=== PATIENT | female | born 1960 | race Caucasian/White ===

== ENCOUNTER 2017-08-28 10:36 | Emergency (ER) | payer BC, OTHER ==
[~2017-08-28] VITALS: Ht 157.5 cm; Wt 54.0 kg
[~2017-08-28 10:36] MED LIST: FLUO20CA35 PO
[2017-08-28 10:37] VITALS: TEMP 36.8; Ht 157.5 cm; Wt 54.0 kg
--- NOTE | 2017-08-28 13:04 | DIAGNOSTIC IMAGING REPORT ---
L HAND MIN 3 VIEWS ROUTINE CLINICAL HISTORY: dog bite left hand/attention third and fourth digits trauma. Pain. COMPARISON: None. DISCUSSION: Moderate generalized degenerative change. Tiny avulsion base middle phalanx fourth finger. Associated soft tissue edema. No evidence of dislocation. Moderate soft tissue edema the third and fourth fingers. No evidence of dislocation. No radiopaque foreign bodies. IMPRESSION: 1. Small avulsion base middle phalanx left fourth finger. 2. Soft tissue edema about the third and fourth fingers. 3. Moderate generalized degenerative change. The above report was generated using voice recognition software. It may contain grammatical, syntax or spelling errors. Electronically signed by: Matti Myers M.D. 08/28/2017 1:02 PM Dictated Date/Time: 08/28/2017 1:00 PM
--- NOTE | 2017-08-28 13:15 | EMERGENCY ROOM VISIT NOTE ---
ED Visit Note First contact with patient: 11:10 CHIEF COMPLAINT: Left hand injury secondary to dog bite. HISTORY OF PRESENT ILLNESS: This 57-year-old female presents the ER with chief complaint that her dog bit her left hand last night at 9:30 PM. The patient states that the bite was accidental. She was playing with him and he accidentally bit her left hand. The dog's immunizations are all up-to-date. The patient's tetanus was in 2015. The patient states that there is a small open wound on the left third finger which she washed out with peroxide and then placed antibiotic ointment. She is concerned because both her third and fourth fingers are very swollen and ecchymotic. She also has a wearing on her ring finger which she cannot removed. REVIEW OF SYSTEMS: 3 system review was performed and was negative unless stated otherwise in history of present illness. PMH: The patient is healthy; cleft palate repair SOCIAL HISTORY: Patient lives with her boyfriend. The patient admits to alcohol use but denies any tobacco use. PHYSICAL EXAM: Vital Signs: Were reviewed Reviewed Nurse's notes. GENERAL: 57- year-old white female appears in no acute distress. MENTAL Status: Alert and oriented 3. LEFT HAND: The patient has ecchymosis and edema noted to the third and fourth digits. There is a superficial wound noted on the distal aspect of the third finger. Remainder of hand is unremarkable. The patient has a ring on her fourth finger. It is not tight at the base of the finger but she is unable to remove it. EMERGENCY DEPARTMENT COURSE: The patient was evaluated. Animal bite form was completed. The patient's ring was cut off her left fourth finger. X-ray of the left hand was ordered interpreted by the radiologist and myself. DIAGNOSTICS:L HAND MIN 3 VIEWS ROUTINE CLINICAL HISTORY: dog bite left hand/attention third and fourth digits trauma. Pain. COMPARISON: None. DISCUSSION: Moderate generalized degenerative change. Tiny avulsion base middle phalanx fourth finger. Associated soft tissue edema. No evidence of dislocation. Moderate soft tissue edema the third and fourth fingers. No evidence of dislocation. No radiopaque foreign bodies. IMPRESSION: 1. Small avulsion base middle phalanx left fourth finger. 2. Soft tissue edema about the third and fourth fingers. 3. Moderate generalized degenerative change. The above report was generated using voice recognition software. It may contain grammatical, syntax or spelling errors. Electronically signed by: Matti Myers M.D. 08/28/2017 1:02 PM The patient was informed of the findings. The patient was offered fingers when he was she declined. I also informed her that I will be putting her on antibiotics. She states that antibiotics upset her stomach. I stated that her bites are very dirty and that she needs to take the antibiotics. The patient verbalized understanding. The patient was discharged home in stable condition. DIAGNOSIS: Avulsion fracture left fourth finger Contusion left hand Dog bite left hand DISCHARGE INSTRUCTIONS & TREATMENT: Ibuprofen 600 mg every 6 hours with food for pain and swelling. Keep hand elevated whenever possible. Ice intermittently over the next 24-48 hours. Take clindamycin as prescribed. If symptoms are not improving in 5-7 days, follow-up with your family doctor for reevaluation. Current/Historical Medications Scheduled Fluoxetine (Prozac), 20 MG PO Q2D Allergies Coded Allergies: Penicillins (Verified Allergy, Unknown, N/V, 08/28/17) Vital Signs Date Time Temp Pulse Resp B/P (MAP) Pulse Ox O2 Delivery O2 Flow Rate FiO2 08/28/17 12:33 67 18 112/82 99 Room Air 08/28/17 10:37 36.8 63 16 128/68 100 Departure Information Referrals Ashish Galvan DO (PCP) Patient Instructions [facility]
[2017-08-28] MEDS ORDERED: CLIN300C2 PO (13:17)
[2017-08-28 13:35] VITALS: BP 114/79; PULSE 65; O2SAT 98
== END 2017-08-28 13:34 | disposition home or self-care (01) ==
LOC: C.EDB 10:38 → C.EDD 13:34
DX: S62.625A Displaced fracture of middle phalanx of left ring finger, initial encounter for closed fracture (principal); S61.252A Open bite of right middle finger without damage to nail, initial encounter; W54.0XXA Bitten by dog, initial encounter; Y93.83 Activity, rough housing and horseplay; F10.99 Alcohol use, unspecified with unspecified alcohol-induced disorder; Z88.1 Allergy status to other antibiotic agents

== ENCOUNTER → 2017-12-04 | Outpatient (CLI) | payer OTHER | END | disposition home or self-care (01) | LOC: C.RDSM 10:50 | PROVIDERS: ATTEND Orthopaedic Surgery | DX: M79.644 Pain in right finger(s) (principal) ==